=== PATIENT | female | born 1955 | race Caucasian/White ===

== ENCOUNTER → 2019-01-25 | Outpatient (CLI) | payer OTHER ==
--- NOTE | 2019-01-25 10:27 | 2DMMODE ---
[facility] [place] [address] 2 D/M-MODE ECHOCARDIOGRAM Name: NATHAN BRAVO Room #: [id number] Admission: 01/25/19 Attend Phys: Waylon Serrano MD Discharge: Date of : 57 Report #: [id number] THIS REPORT FOR: //name// APPROVED REPORT Study performed: 01/25/2019 09:49:31 EXAM: Comprehensive 2D, Doppler, and color-flow Echocardiogram Patient Location: Out-Patient Status: routine BSA: 2.23 HR: 75 bpm BP: 128/80 mmHg Rhythm: NSR Other Information Study Quality: Adequate Indications Elevated calcium score, chest pain. Hx: HTN, HLP. 2D Dimensions RVDd: 22.89 mm IVSd: 9.92 (7-11mm) LVOT Diam: 22.07 (18-24mm) LVDd: 53.52 mm PWd: 9.64 (7-11mm) Ascending Ao: 37.93 (22-36mm) LVDs: 38.04 (25-40mm) Aortic Root: 38.41 mm Volumes Left Atrial Volume (Systole) Single Plane 4CH: 40.60 mL Single Plane 2CH: 50.72 mL LA ESV Index: 22.00 mL/m2 Aortic Valve AoV Peak Aris.: 1.36 m/s AO Peak Gr.: 7.36 mmHg LVOT Max P.46 mmHg LVOT Max V: 0.93 m/s GREGORIO Vmax: 2.62 cm2 Mitral Valve E/A Ratio: 0.8 MV Decel. Time: 428.81 ms MV E Max Aris.: 0.48 m/s [facility] [address] [place] [address] 2 D/M-MODE ECHOCARDIOGRAM Name: LAWRENCENATHAN Room #: REG [facility] [id number] Admission: 01/25/19 Attend Phys: Waylon Serrano MD Discharge: Date of : 57 Report #: [id number] MV A Aris.: 0.61 m/s MV PHT: 124.35 ms IVRT: 86.51 ms Pulmonary Valve PV Peak Aris.: 1.05 m/s PV Peak Gr.: 4.39 mmHg Tricuspid Valve TR Peak Aris.: 2.28 m/s TR Peak Gr.: 20.78 mmHg Left Ventricle The left ventricle is normal size. There is normal LV segmental wall motion. There is normal left ventricular wall thickness. The left ventricular systolic function is normal. LVEF is 55-60%. Mild diastolic dysfunction is present (impaired relaxation pattern). Right Ventricle The right ventricle is normal size. The right ventricular systolic function is normal. Atria The left atrium size is normal. The right atrium size is normal. Aortic Valve The aortic valve is normal in structure. No aortic regurgitation is present. There is no aortic valvular stenosis. Mitral Valve The mitral valve is normal in structure. There is no mitral valve regurgitation noted. No evidence of mitral valve stenosis. Tricuspid Valve The tricuspid valve is normal in structure. Trace tricuspid regurgitation. Estimated PAP is 20mmHg plus the right atrial pressue. Pulmonic Valve The pulmonary valve is normal in structure. Trace pulmonic regurgitation. Great Vessels Aortic root is borderline dilated. The ascending aorta is normal in size. IVC is not well visualized. [facility] [place] [address] [place] [address] 2 D/M-MODE ECHOCARDIOGRAM Name: NATHAN BRAVO Room #: REG Con.#: [id number] Admission: 01/25/19 Attend Phys: Waylon Serrano MD Discharge: Date of : 57 Report #: [id number] Pericardium There is no pericardial effusion. <Conclusion> The left ventricle is normal size. There is normal left ventricular wall thickness. The left ventricular systolic function is normal. Mild diastolic dysfunction is present (impaired relaxation pattern). The right ventricle is normal size. The left atrium size is normal. The aortic valve is normal in structure. There is no mitral valve regurgitation noted. Trace tricuspid regurgitation. Estimated PAP is 20mmHg plus the right atrial pressue. <ELECTRONICALLY SIGNED> By: Waylon Serrano MD 01/25/19 1026 1026 1026 Waylon Serrano MD /INF
== END ==
LOC: CV 09:30
DX: R93.1 Abnormal findings on diagnostic imaging of heart and coronary circulation (principal); R07.9 Chest pain, unspecified; I10 Essential (primary) hypertension; E78.5 Hyperlipidemia, unspecified; E11.9 Type 2 diabetes mellitus without complications